=== PATIENT | female | born 1995 | race Caucasian/White ===

== ENCOUNTER → 2021-09-17 11:38 | Outpatient (BNVA) | payer BC, SELFPAY | PROVIDERS: Family Provider Family Medicine; PCP Family Medicine; Visit Provider Family Medicine | DX: Z34.00 Encounter for supervision of normal first pregnancy, unspecified trimester (principal) | CPT/HCPCS: 80307; 81000; 81025; 84443; 84702; 85027; 86592; 86762; 86850; 86900; 87086; 87340; 87491; 87591; 87624; 87806 ==

== ENCOUNTER 2021-09-18 15:51 | Outpatient (CLI) | payer BC, SELFPAY ==
--- NOTE | 2021-09-18 14:45 | US_ITS ---
WS: [id number] EARLY OBSTETRICAL ULTRASOUND (<14 WEEKS). HISTORY: Dates. COMPARISON: None available. Single intrauterine gestational sac is identified. Cardiac activity at 171 BPM. [place]-rump length yoav sures 2.8 cm which corresponds to a gestation of 9w4d. Normal-appearing yolk sac and amnion demonstra jens. No subchorionic hemorrhage. Trace free fluid in the cul-de-sac. Normal size RIGHT ovary. LEFT ovary is not identified. US/US OB <=14 wk fetus w transvag IMPRESSION: 1. Single intrauterine gestation of 9 weeks 4 days with an EDC of 04/19/2022. 2. Normal cardiac activity.
== END 2021-09-18 15:52 | disposition home or self-care (01) ==
LOC: RAD 15:52
PROVIDERS: Family Provider Family Medicine; PCP Family Medicine; Visit Provider Family Medicine
DX: Z36.87 Encounter for antenatal screening for uncertain dates (principal); Z3A.09 9 weeks gestation of pregnancy
CPT/HCPCS: 76801; 76817

== ENCOUNTER 2021-11-30 06:18 | Outpatient (CLI) | payer BC, MEDICAID, SELFPAY ==
--- NOTE | 2021-11-30 06:15 | US_ITS ---
WS: [id number] OBSTETRICAL ULTRASOUND COMPLETE HISTORY: Anatomy US COMPARISON: 09/18/2021 Single intrauterine gestation in breech presentation. Cervix is Closed and normal length. Cervical length is 4.2 cm. Normal amount of amniotic fluid surrounds the fetus. Placenta: Anterior, no previa or abruption. Placenta grade 0 Heart: 141 BPM. Four chambers are difficult to identify. Not identified due to maternal body habitus. Anatomy: spine and intracranial structures are identified but evaluation is limited due to mate rnal body habitus. kidneys, stomach and urinary bladder are unremarkable. Limited evaluation of the abdominal wall and cord insertion. Three-vessel cord noted. 4 extremities are present. profile: Unremarkable. Gender: Female. measurements: BPD = 4.8 cm = 20w4d HC = 19.4 cm = 21w5d AC = 15.9 cm = 21w0d FL = 3.1 cm = 19w5d EFW: 360 g. Biometry is internally concordant. AGA by ultrasound: 20w6d GLORIA by ultrasound: 04/13/2022 US/US OB >= 14 weeks fetus [id number] IMPRESSION: 1. Single intrauterine gestation of 20w6d with an GLORIA of 04/13/2022. Appropria te growth since the first trimester ultrasound. 2. Screening survey of anatomy is limited by maternal body habitus. Four -chamber heart and outflow tracts are limited. Limited evaluation of the intrac ranial structures and spine. The remaining anatomy is negative.
== END 2021-11-30 06:19 | disposition home or self-care (01) ==
PROVIDERS: PCP Family Medicine; Visit Provider Family Medicine
DX: Z36.89 Encounter for other specified antenatal screening (principal); Z3A.20 20 weeks gestation of pregnancy
CPT/HCPCS: 76805

== ENCOUNTER → 2022-01-04 08:19 | Outpatient (BNVA) | payer BC, MEDICAID, SELFPAY | PROVIDERS: PCP Family Medicine; Visit Provider Family Medicine | DX: Z34.00 Encounter for supervision of normal first pregnancy, unspecified trimester (principal) | CPT/HCPCS: 76816 ==

== ENCOUNTER → 2022-01-14 12:57 | Outpatient (BNVA) | payer BC, MEDICAID, SELFPAY | PROVIDERS: PCP Family Medicine; Visit Provider Family Medicine | DX: Z23 Encounter for immunization (principal); Z34.00 Encounter for supervision of normal first pregnancy, unspecified trimester | CPT/HCPCS: 82950 ==

== ENCOUNTER → 2022-01-21 12:00 | Day surgery (SDC) | payer BC, MEDICAID, SELFPAY ==
[2022-01-21 12:30] VITALS: BMI 49.2
[2022-01-21 12:31] VITALS: BP 157/95; PULSE 107; RESP 18; TEMP 35.9; O2SAT 98
[2022-01-21 13:39] VITALS: BP 157/95; PULSE 107; RESP 18; TEMP 35.9; O2SAT 98
== END ==
PROVIDERS: PCP Family Medicine; Visit Provider Family Medicine
DX: O26.899 Other specified pregnancy related conditions, unspecified trimester (principal); Z3A.00 Weeks of gestation of pregnancy not specified; Z67.91 Unspecified blood type, Rh negative
CPT/HCPCS: 36415; 86850; 86900; 90384; 96372

== ENCOUNTER → 2022-02-20 13:23 | Outpatient (BNVA) | payer BC, MEDICAID, SELFPAY | PROVIDERS: PCP Family Medicine; Visit Provider Family Medicine | DX: Z51.81 Encounter for therapeutic drug level monitoring (principal); Z34.00 Encounter for supervision of normal first pregnancy, unspecified trimester | CPT/HCPCS: 85025 ==

== ENCOUNTER → 2022-03-20 13:55 | Outpatient (BNVA) | payer BC, MEDICAID, SELFPAY | PROVIDERS: PCP Family Medicine; Visit Provider Family Medicine | DX: Z34.00 Encounter for supervision of normal first pregnancy, unspecified trimester (principal) | CPT/HCPCS: 87081 ==

== ENCOUNTER 2022-03-24 08:16 | Outpatient (CLI) | payer BC, MEDICAID, SELFPAY ==
[2022-03-24 08:39] VITALS: BP 121/69; PULSE 120
[2022-03-24 08:46] VITALS: BMI 50.7
[2022-03-24 08:54] VITALS: BP 100/56; PULSE 96
[2022-03-24 08:58] VITALS: TEMP 35.8
[2022-03-24 09:09] VITALS: BP 141/70; PULSE 93
[2022-03-24 09:14] VITALS: RESP 18
[2022-03-24 18:10] LABS: Nitrazine Paper, PH Negative
== END 2022-03-24 09:25 | disposition home or self-care (01) ==
LOC: OPOB 08:26 → OBGYN 08:28
PROVIDERS: PCP Family Medicine; Visit Provider Family Medicine
DX: O26.899 Other specified pregnancy related conditions, unspecified trimester (principal); Z3A.00 Weeks of gestation of pregnancy not specified; N89.8 Other specified noninflammatory disorders of vagina
CPT/HCPCS: 59025; 83986; 99211

== ENCOUNTER 2022-04-04 10:47 | Outpatient (CLI) | payer BC, MEDICAID, SELFPAY ==
--- NOTE | 2022-04-04 10:45 | US_ITS ---
WS: [id number] LIMITED OBSTETRICAL ULTRASOUND HISTORY: Measuring large for gestational age - TANIA/EFW COMPARISON: 2021, 11/30/2021, 01/04/2022 Presentation: Vertex. Cervix: Not visualized. Obscured by the head. Placenta: Anterior, no previa or abruption. Grade: 3 HEART: FHR of 138 BPM. measurements: BPD = 9.2 cm = 37w3d; 63rd percentile HC = 33.9 cm = 39w0d; 55th percentile AC = 34.9 cm = 38w5d; 87th percentile FL = 7.4 cm = 37w6d; 54th percentile TANIA: 14.4 cm EFW: 3491 g; 87th percentile AGA by ultrasound: 38w2d GLORIA by ultrasound: 04/16/2022 US/US OB limited [id number] IMPRESSION: 1. Single intrauterine gestation of 38 weeks 2 days with an EDC of 04/16/2022. Growth is appropriate compared to the first trimester ultrasound. 2. Estimated weight at the 87th percentile for age. 3. Abdominal circumference measuring at the 87th percentile for age. 4. Grade 3 placenta.
== END 2022-04-04 10:48 | disposition home or self-care (01) ==
LOC: RAD 10:49
PROVIDERS: PCP Family Medicine; Visit Provider Family Medicine
DX: Z36.88 Encounter for antenatal screening for fetal macrosomia (principal); Z3A.38 38 weeks gestation of pregnancy
CPT/HCPCS: 76815

== ENCOUNTER 2022-04-15 14:57 | Inpatient (IN) | payer BC, MEDICAID, SELFPAY ==
[2022-04-15] VITALS (30 sets, daily range): BP systolic 127–210; BP diastolic 65–125; PULSE 80–104; RESP 18; O2SAT 98–100; BMI 51.5
[2022-04-15 16:31] LABS: Basophils % 0.2 %; Eosinophils % 0.3 %; Hematocrit 36.6 % (37.0-47.0); Hemoglobin 12.4 g/dL (11.5-15.3); Lymphocytes # 2.5 10^3/uL (0.8-4.8); Lymphocytes % 20.7 %; Mean Corpuscular HGB Conc 33.9 g/dL (30.0-36.0); Mean Corpuscular Hemoglobin 31.6 pg (28.0-34.0); Mean Corpuscular Volume 93.1 fl (81-99); Mean Platelet Volume 11.2 fL (7.4-10.4); Monocytes # 0.8 10^3/uL (0.2-0.9); Monocytes % 6.3 %; Neutrophils # 8.61 10^3/uL (1.8-7.7); Nucleated Red Blood Cells % 0 %; Platelet Count 282 10^3/cmm (130-400); Red Blood Count 3.93 10^6/uL (4.1-5.3); Red Cell Distribution Width 13.5 % (12.1-15.1)
[2022-04-15] MEDS: oxytocin 30 UNIT/500 ML BAG IV (16:56)
[2022-04-15] MEDS: dextrose 5%-lactated ringers 1,000 ML 125 ML IV (16:57)
[2022-04-15] MEDS: ampicillin 2,000 MG in sodium chloride 0.9% (plus) 50 ML 100 MG IV (17:38)
--- NOTE | 2022-04-15 18:19 | P.HP_ITS ---
Providers/Chief Complaint Admitting Physician: Adalebrto Bauer MD Primary Care Provider: Adalberto Bauer MD Chief Complaint: Induction History of Present Illness Meka Sigala is a 27 year old @ 39.3 weeks by LMP consistent with 9 wk US. Preg c/b obesity, Rh negative, GBS positive, elevating BP. The patient presented to my office on the morning of 04/15/2022 and her blood pressure was found to be in the 150s systolic. This improved to the mid 140s systolic on recheck. The patient did not have any headache, nausea, flashes of light or abdominal pain. Her cervical exam was 3 cm dilation with 80% effacement. The patient was already scheduled for an elective induction of labor on 04/16/2022. For this reason, we discussed the options for proceeding with delivery today versus waiting until tomorrow and she confirmed that she would like to move forward with induction of labor today. The patient has been feeling well overall. She denies any leakage of fluid, vaginal bleeding, chest pain, shortness of breath, nausea, vomiting, diarrhea, constipation, dysuria, headaches. She has been having increased contractions at home. Upon presentation to labor and delivery she was noted to be 5 cm dilated. Medications/Allergies Home Medications Medication Instructions Recorded Confirmed Last Taken Type PNV no.151-iron 27 mg-folic 800 1 cap PO DAILY 09/19/21 04/15/22 01/21/22 History mcg-omega3 260 ea-lue-mvz-fish capsule ( Multi-DHA (with vitamin K)) Allergies Allergy/AdvReac Type Severity Reaction Status Date / Time cephalexin Allergy Intermediate ALGY-Rash Verified 01/21/22 12:30 PFSH Acute PFSH: Medical History Anxiety and depression Surgical History Hx of tonsillectomy Social History Smoking and tobacco status: never smoked Alcohol intake: former Former alcohol use details: None during - occasional outside of Female Reproductive History: : 1 Vitals/I&O/Wt Last Vital Signs Pulse 87 04/15/22 17:51 Resp 18 04/15/22 16:09 BP 210/125 04/15/22 17:51 O2 Del Method 04/15/22 16:09 04/15/22 04/15/22 04/15/22 06:59 14:59 22:59 Intake Total 240.567 / 240.567 Balance 240.567 / 240.567 Weight last 48 hrs Weight 329 lb Physical Exam Narrative: General: Alert and oriented x3 Eyes: Pupils equal round and reactive to light and accommodation Mouth: Mucous membranes moist, pharynx non-erythematous Cardiac: Regular rate and rhythm without murmurs Lungs: Clear to auscultation bilaterally without wheezes, crackles or rhonchi Abdomen: Soft, non-tender, fundus consistent with gestational age Extremities: Trace edema in the bilateral lower extremities Data 04/15/22 15:45 A&P Assessment and plan (1) Elevated blood-pressure reading without diagnosis of hypertension: (2) Rh negative status during : (3) Supervision of normal intrauterine in primigravida: We will plan to proceed with induction of labor using IV Pitocin. The patient is GBS positive and we will start her on ampicillin for GBS prophylaxis. She may have a laboring epidural when desired. Currently her blood pressures are in the 130s to 150s systolic. She is asymptomatic with this. Her protein creat inine ratio is 0.13. She is unlikely to have preeclampsia based on these findings. We will continue to watch her blood pressures and continue with induction of labor as above. All questions were answered. The patient and her are in agreement with the current plan of care. Attestations Medical Necessity Statement*: The patient will be here for greater than 2 midnights due to routine intrapartum and management of labor and delivery. Coding Level of Care Code Acute Code for Chg Fwd Diagnoses Elevated blood-pressure reading without diagnosis of hypertension R03.0 Rh negative status during O26.899; Z67.91 Supervision of normal intrauterine in primigravida Z34.00
[2022-04-15] MEDS: ampicillin 1,000 MG in sodium chloride 0.9% (plus) 50 ML 100 MG IV (21:14)
[2022-04-15] MEDS: labetalol 5 mg/mL SDV 20mL 20 MG IVP (22:00)
[2022-04-15] MEDS: lactated ringers 1,000 ML 999 ML IV (22:13)
[2022-04-15] MEDS: labetalol 5 mg/mL SDV 20mL 40 MG IVP (22:30)
--- NOTE | 2022-04-15 23:19 | ANES.PREANE2 ---
Pre-Anesthetic Assessment Height/Weight: Height 1.7 m Weight 149.232 kg Pulse Resp BP O2 Del Method 90 18 146/72 04/15/22 23:14 04/15/22 16:09 04/15/22 23:14 04/15/22 16:09 Preop Diagnosis: labor epidural Familial anesthetic complications: none Was Beta Latisha taken within 24 hours: N/A Was Clonidine taken within 24 hours: N/A Last Intake: 12:00 Social No alcohol and No tobacco Exam alert, oriented x 3, clear to auscultation bilaterally and regular rate & rhythm Airway Submandibular: within normal limits Cervical ROM: within normal limits Mallampati: Class II Dentition: full Pulmonary None reported CV/HEM Hypertension (with ) None reported Hepatic None reported GI None reported Metabolic Morbid Obesity [facility] None reported Neuropsych None reported Anesthetic Plan ASA status: 2 Anesthesia: Regional (specify below) (epidural) Medications/Allergies Home Medications Medication Instructions Recorded Confirmed Last Taken Type PNV no.151-iron 27 mg-folic 800 1 cap PO DAILY 09/19/21 04/15/22 01/21/22 History mcg-omega3 260 ff-ksn-ebm-fish capsule ( Multi-DHA (with vitamin K)) Allergies Allergy/AdvReac Type Severity Reaction Status Date / Time cephalexin Allergy Intermediate ALGY-Rash Verified 01/21/22 12:30 Current Medications Generic Name Dose Route Start Last Admin Trade Name Freq PRN Reason Stop Dose Admin Dextrose/Lactated Ringer's 1,000 mls @ 125 mls/hr 04/15/22 16:15 04/15/22 16:57 Dextrose 5%-Lactated Ringers IV 125 mls/hr .Q8H MAX Administration Oxytocin 30 unit in 500 mls @ 1 mls/hr 04/15/22 16:15 04/15/22 20:30 Pitocin IV 20 milliunit/min .Q24H MAX 20 mls/hr Titration Protocol 1 MILLIUNIT/MIN Ampicillin Sodium 1,000 mg/ 50 mls @ 100 mls/hr 04/15/22 21:15 04/15/22 21:14 Sodium Chloride IV 100 mls/hr Q4H MAX Administration Protocol Labetalol HCl 20 mg 04/15/22 21:48 04/15/22 22:00 Labetalol 5 Mg/Ml Sdv 20ml IVP 20 mg PRN PRN Administration HYPERTENSION Protocol Labetalol HCl 40 mg 04/15/22 21:48 04/15/22 22:30 Labetalol 5 Mg/Ml Sdv 20ml IVP 40 mg PRN PRN Administration HYPERTENSION Protocol [facility] [place] Anesthesia Medical History Anxiety and depression Surgical History Hx of tonsillectomy Social History Smoking and tobacco status: never smoked Alcohol intake: former Former alcohol use details: None during - occasional outside of Female Reproductive History : 1 Data Anesthesia 04/15/22 15:45 Short CBC 04/15/22 Range/Units 15:45 WBC 12.0 H (4.0-10.0) 10^3/uL Hgb 12.4 (11.5-15.3) g/dL Hct 36.6 L (37.0-47.0) % MCV 93.1 (81-99) fl Plt Count 282 (130-400) 10^3/cmm Neut % (Auto) 72.0 % Neut # (Auto) 8.61 H (1.8-7.7) 10^3/uL Cardiac Studies: No Data to Display
[2022-04-16] VITALS (39 sets, daily range): BP systolic 120–189; BP diastolic 53–114; PULSE 83–133; RESP 16; TEMP 36.6–37.3; O2SAT 96–97
--- NOTE | 2022-04-16 00:02 | ANES.PROC ---
Anesthesia Procedures Procedure/Date: 04/16/22 Epidural: Time Out Performed: Yes Consents Signed: Procedure Consent and NPO Consent Consent: requested by attending/covering physician, from patient, risks and benefits reviewed and patient agrees to proceed Lumbar Level: L3-L4 Epidural position: sitting Epidural procedure: sterile prep of area (betadine), 1% lidocaine to numb the area (3ml), 18 g needle, negative for paresthesia passed, neg for paresthesia, test dose given, 1.5% xylocaine 1:200k epi (3ml/2ml), 0.2% Ropivacaine bolus ml (5ml), placed PCEA, no systemic response, sterile dressing applied, L.U.D. no apparent complications and 0.2% Ropiavacaine @ mls/hr (13ml/hr)
[2022-04-16] MEDS: labetalol 5 mg/mL SDV 20mL 40 MG IVP (02:37)
[2022-04-16] MEDS: ampicillin 1,000 MG in sodium chloride 0.9% (plus) 50 ML 100 MG IV (03:03)
[2022-04-16] MEDS: labetalol 5 mg/mL SDV 20mL 20 MG IVP (06:54)
--- NOTE | 2022-04-16 07:56 | P.PCNOB_ITS ---
Delivery Note: Date of delivery: April 16, 2022 Pre-delivery diagnoses: 1. Intrauterine at 39.4 weeks gestation 2. Maternal obesity 3. Rh- 4. GBS positive 5. Gestational hypertension 6. Meconium stained fluid Post-delivery diagnoses: 1. Intrauterine status post spontaneous vaginal delivery at 39.4 weeks gestation 2. Maternal obesity 3. Rh- 4. GBS positive 5. Gestational hypertension1. Intrauterine at 39.4 weeks gestation 2. Maternal obesity 3. Rh- 4. GBS positive 5. Gestational hypertension 6. Meconium stained fluid 7. Delivery of healthy female weighing 7 pounds 11 ounces with Apgars of 7 and 9 Procedure: Spontaneous vaginal delivery Delivering Physician: Adalberto Bauer MD Estimated blood loss (mL): 200 Findings: 1. Delivery of healthy female weighing 7 pounds 11 ounces with Apgars of 7 and 9 2. Intact placenta with central umbilical cord insertion site. Pre-Delivery Course: Meka Sigala is a 27 year old G1 NOW P1 status post spontaneous vaginal delivery@ 39.4 weeks by LMP consistent with 9 wk US. Preg c/b obesity, Rh negative, GBS positive, intrapartum gestational hypertension The patient presented to my office on the morning of 04/15/2022 and her blood pressure was found to be in the 150s systolic.? This improved to the mid 140s systolic on recheck.? The patient did not have any headache, nausea, flashes of light or abdominal pain.? Her cervical exam was 3 cm dilation with 80% effacement.? The patient was already scheduled for an elective induction of labor on 04/16/2022.? For this reason, we discussed the options for proceeding with delivery today versus waiting until tomorrow and she confirmed that she would like to move forward with induction of labor today. Upon presentation to labor and delivery she was noted to be 5 cm dilated. The patient was started on IV Pitocin for induction of labor in the early afternoon of 04/15/2022. The patient had regular contractions however did not make significant change. By 2131 the head was well applied, so AROM was performed by myself. Meconium stained fluid was noted. The patient then began to make slow but gradual progress. She was complete by 4:15 AM on 04/16/2022. The patient did have some severe blood pressures and these were treated with labetalol IV. She had no other symptoms including headache, nausea, flashes of lights, chest pains. Delivery: The patient began pushing at 5:04 AM on 04/08/2022. The patient pushed well and the delivered in the OA position at 7:12 AM on 04/16/2022. The left shoulder was the anterior shoulder and it delivered with ease. A nuchal cord was present and the infant was delivered through this. The infant's mouth and nose were bulb suctioned by myself and she was crying and vigorous immediately after delivery. She was placed on the mother's chest where the nurses were waiting to care for her. The cord was clamped by myself after approximately 1 minute and cut by the 's father. Cord blood was obtained and the cord was then drained of blood. Traction was placed on the umbilical cord and the placenta delivered without complication at 7:23 AM on 04/16/2022. The placenta was noted to be intact with a central umbilical cord insertion site. Next the uterus was massaged and was noted to be firm and midline. Her bleeding decreased gradually. The cervix was inspected and no lacerations were noted. The vaginal wall was inspected and a first-degree right vaginal wall laceration was noted. This was not bleeding and did not need suturing. Post-Delivery Status: Currently the patient is doing very well. The is needing extra respiratory support at this time. She initially needed CPAP at approximately 7 to 10 minutes of life and is currently on oxygen via nasal cannula. She is gradually showing signs of improvement. History History History 1 Term 1 0 Miscarriages/Ectopic 0 Living Children 1 Past Pregnancies Del. Date GA/Weeks Outcome Route Wt Inf Gender Labor Lgth Comp. Anesth esia Location 04/16/22 39 live - full term Vaginal 7 lb 11 oz Female 16 regional [facility] Delivery Date: 04/16/22 Last Updated by: Adalberto Bauer MD Meconium stained fluid, severe hypertension during labor treated with labetalol. A&P Assessment and plan (1) Spontaneous vaginal delivery: (2) Gestational hypertension: Coding Level of Care Code Acute Code for Chg Fwd Diagnoses Spontaneous vaginal delivery O80 Gestational hypertension O13.9
[2022-04-16] MEDS: prenatal vitamin Capsule 1 CAP PO (09:51)
[2022-04-16] MEDS: ibuprofen 800 mg tablet PO ×3 (09:51→20:48)
[2022-04-16] MEDS: docusate sodium 100 mg Capsule PO ×2 (09:52→18:27)
--- NOTE | 2022-04-16 12:45 | ANE.PACU2 ---
Inpatient post-anesthesia follow up: Airway intact: Yes Vital signs: Temperature 99.1 F Pulse Rate 91 Respiratory Rate 18 Blood Pressure 163/73 Pulse Oximetry 100 Oxygen Delivery Me thod Room Air Oxygen Flow Rate Fraction of Inspir ed Oxygen Hydration adequate: Yes Nausea and vomiting: No Pain level: 2 Mental status: Baseline
[2022-04-16 21:16] LABS: Hematocrit 29.5 % (37.0-47.0); Hemoglobin 9.9 g/dL (11.5-15.3); Mean Corpuscular HGB Conc 33.6 g/dL (30.0-36.0); Mean Corpuscular Hemoglobin 31.3 pg (28.0-34.0); Mean Corpuscular Volume 93.4 fl (81-99); Mean Platelet Volume 10.4 fL (7.4-10.4); Platelet Count 222 10^3/cmm (130-400); Red Blood Count 3.16 10^6/uL (4.1-5.3); Red Cell Distribution Width 13.9 % (12.1-15.1); White Blood Count 14.9 10^3/uL (4.0-10.0)
--- NOTE | 2022-04-17 08:16 | PM.PN ---
Subjective Subjective: The patient is doing well overall. Her bleeding is decreasing well. Her pain is well controlled. She is ambulating, voiding, passing gas and tolerating food by mouth. Vitals/I&O/Wt Last Vital Signs Temp 98.0 F 04/16/22 22:40 Pulse 86 04/16/22 22:40 Resp 16 04/16/22 22:40 BP 146/85 04/16/22 22:40 Pulse Ox 97 04/16/22 22:40 O2 Del Method 04/16/22 22:40 Weight last 48 hrs Weight 329 lb Physical Exam Narrative: General: Alert and oriented x3 Cardiac: Regular rate and rhythm without murmurs Lungs: Clear to auscultation bilaterally without wheezes, crackles or rhonchi Abdomen: Soft, mild tenderness over uterus. The uterus is firm and 2 cm below the umbilicus. Extremities: +2 pitting edema in the bilateral lower extremities Urinary Catheter Management: Noel Latex: Cath Placed During This Visit: yes Urinary Catheter Date of Insertion: 04/16/22 Urinary Catheter Time of Insertion: 00:40 Data 04/16/22 21:10 A&P Assessment and plan (1) Gestational hypertension: The patient's blood pressures are gradually decreasing. We will continue to watch them and if moving up, we may need to start labetalol . (2) Spontaneous vaginal delivery: The patient is doing well overall. We will see how she does throughout the day in terms of her blood pressures and plan for discharge home either this afternoon or tomorrow depending on her course. Attestations Medical Necessity Statement*: The patient will be here for greater than 2 midnights due to routine intrapartum and management of labor and delivery. Coding Level of Care Code Acute Code for Chg Fwd Diagnoses Gestational hypertension O13.9 Spontaneous vaginal delivery O80
[2022-04-17] MEDS: ibuprofen 800 mg tablet PO ×3 (10:44→21:34)
[2022-04-17] MEDS: prenatal vitamin Capsule 1 CAP PO (10:44)
[2022-04-17] MEDS: docusate sodium 100 mg Capsule PO ×2 (10:44→21:34)
[2022-04-17 10:49] VITALS: BP 146/98; PULSE 90; RESP 17
[2022-04-17 16:50] VITALS: BP 139/87; PULSE 88; RESP 17; TEMP 36.7
[2022-04-17 22:15] VITALS: BP 132/90; PULSE 72; RESP 17; TEMP 36.7; O2SAT 98
[2022-04-18 04:10] VITALS: BP 142/86; PULSE 74; RESP 18; TEMP 36.8; O2SAT 97
[2022-04-18 07:15] VITALS: BP 139/89; PULSE 87; RESP 18; TEMP 36.8
--- NOTE | 2022-04-18 07:47 | PC.NURSE ---
RECEIVED REPORT FROM ISAURO LLOYD RN AT BEDSIDE.
--- NOTE | 2022-04-18 08:51 | P.DS_ITS ---
Discharge Providers Date of Admission: 04/15/22 14:57 Date of Discharge: April 18, 2022 Attending Provider at Admission: Adalberto Bauer MD Attending Provider at Discharge: Adalberto Bauer MD Primary Care Provider: Adalberto Bauer MD Diagnoses at Discharge Discharge Diagnosis (1) Gestational hypertension: Status: Acute (2) Spontaneous vaginal delivery: Status: Resolved Other Information Additional DC diagnoses/information: 1.? Intrauterine status post spontaneous vaginal delivery at 39.4 weeks gestation 2.? Maternal obesity 3.? Rh- 4.? GBS positive 5.? Gestational hypertension 6.? Meconium stained fluid 7.? Delivery of healthy infant female weighing 7 pounds 11 ounces with Apgars of 7 and 9? Reason for Visit Reason for Visit: Induction Brief History: Meka Sigala is a 27 year old G1 NOW P1 status post spontaneous vaginal delivery@ 39.4 weeks by LMP consistent with 9 wk US. Preg c/b obesity, Rh negative, GBS positive, intrapartum gestational hypertension The patient presented to my office on the morning of 04/15/2022 and her blood pressure was found to be in the 150s systolic.? This improved to the mid 140s systolic on recheck.? The patient did not have any headache, nausea, flashes of light or abdominal pain.? Her cervical exam was 3 cm dilation with 80% effacement.? The patient was already scheduled for an elective induction of labor on 04/16/2022.? For this reason, we discussed the options for proceeding with delivery today versus waiting until tomorrow and she confirmed that she would like to move forward with induction of labor today. Upon presentation to labor and delivery she was noted to be 5 cm dilated. Procedure: Sponta neous vaginal deli very? Delivering P hysician: Adalberto santiago MD? Estimat ed blood loss (mL) : 200? Findings: 1.? Delivery of he althy femal e weighing 7 pound s 11 ounces with A pgars of 7 and 9 2.? Intact placent a with central umb ilical cord insert ion site. Pre-Delivery Cours e:?? ? Delivery:?? Post-Delivery Stat us:?? Hospital Course Hospital Course The patient was started on IV Pitocin for induction of labor in the early afternoon of 04/15/2022.? The patient had regular contractions however did not make significant change.? By 2132 the head was well applied, so AROM was performed by myself.? Meconium stained fluid was noted.? The patient then began to make slow but gradual progress.? She was complete by 4:15 AM on 04/16/2022.? The patient did have some severe blood pressures and these were treated with labetalol IV.? She had no other symptoms including headache, nausea, flashes of lights, chest pains. The patient began pushing at 5:04 AM on 04/08/2022.? The patient pushed well and the delivered in the OA position at 7:12 AM on 04/16/2022.? The left shoulder was the anterior shoulder and it delivered with ease.? A nuchal cord was present and the infant was delivered through this.? The 's mouth and nose were bulb suctioned by myself and she was crying and vigorous immediately after delivery.? She was placed on the mother's chest where the nurses were waiting to care for her.? The cord was clamped by myself after approximately 1 minute and cut by the 's father.? Cord blood was obtained and the cord was then drained of blood.? Traction was placed on the umbilical cord and the placenta delivered without complication at 7:23 AM on 04/16/2022.? The placenta was noted to be intact with a central umbilical cord insertion site.? Next the uterus was massaged and was noted to be firm and midline.? Her bleeding decreased gradually.? The cervix was inspected and no lacerations were noted.? The vaginal wall was inspected and a first-degree right vaginal wall laceration was noted.? This was not bleeding and did not need suturing. the patient's blood pressures were in the 130s 140s systolic. She denies any chest pains, shortness of breath, nausea, vomiting. Her bleeding is decreasing well. Her pain is well controlled. She is ambulating, voiding, passing gas and tolerating food by mouth. She is to check her blood pressures at home and keep her overall activity levels decreased. If she is having increased blood pressure she is to call and let me know. All questions answered. The patient and her are in agreement with current plan of care. Physical Exam Narrative: General: Alert and oriented x3 Cardiac: Regular rate and rhythm without murmurs Lungs: Clear to auscultation bilaterally without wheezes, crackles or rhonchi Abdomen: Soft, mild tenderness over uterus. The uterus is firm and 2 cm below the umbilicus. Extremities: +1 pitting edema in the bilateral lower extremities Urinary Catheter Management: Noel Latex: Cath Placed During This Visit: yes Urinary Catheter Date of Insertion: 04/16/22 Urinary Catheter Time of Insertion: 00:40 Discharge Data Studies Completed and Pending Laboratory Results WBC 14.9 10^3/uL (4.0-10.0) H 04/16/22 21:10 RBC 3.16 10^6/uL (4.1-5.3) L 04/16/22 21:10 Hgb 9.9 g/dL (11.5-15.3) L 04/16/22 21:10 Hct 29.5 % (37.0-47.0) L 04/16/22 21:10 MCV 93.4 fl (81-99) 04/16/22 21:10 MCH 31.3 pg (28.0-34.0) 04/16/22 21:10 MCHC 33.6 g/dL (30.0-36.0) 04/16/22 21:10 RDW 13.9 % (12.1-15.1) 04/16/22 21:10 Plt Count 222 10^3/cmm (130-400) 04/16/22 21:10 MPV 10.4 fL (7.4-10.4) 04/16/22 21:10 Neut % (Auto) 72.0 % 04/15/22 15:45 Lymph % (Auto) 20.7 % 04/15/22 15:45 [place] % (Auto) 6.3 % 04/15/22 15:45 Eos % (Auto) 0.3 % 04/15/22 15:45 Baso % (Auto) 0.2 % 04/15/22 15:45 Neut # (Auto) 8.61 10^3/uL (1.8-7.7) H 04/15/22 15:45 Lymph # (Auto) 2.5 10^3/uL (0.8-4.8) 04/15/22 15:45 [place] # (Auto) 0.8 10^3/uL (0.2-0.9) 04/15/22 15:45 Eos # (Auto) 0.0 10^3/uL (0.0-0.8) 04/15/22 15:45 Baso # (Auto) 0.0 10^3/uL (0.0-0.1) 04/15/22 15:45 Nucleated RBC % (auto) 0 % 04/15/22 15:45 Nucleated RBCs # 0.0 /100WBC 04/15/22 15:45 Vitals Last Vital Signs Temp 98.3 F 04/18/22 07:15 Pulse 87 04/18/22 07:15 Resp 18 04/18/22 07:15 BP 139/89 04/18/22 07:15 Pulse Ox 97 04/18/22 04:10 O2 Del Method 04/18/22 04:10 Discharge Plan Discharge Patient Disposition: Home Condition: Good Prescriptions: New ferrous sulfate 325 mg (65 mg iron) tablet 325 mg PO BID 14 Days Qty: 30 0RF Continued Multi-DHA(with vit K) 27 mg iron-800 mcg-260 mg capsule 1 cap PO DAILY No Action Lasix 40 mg tablet 40 mg PO DAILY PRN (Reason: edema) potassium chloride 10 mEq capsule, extended release 10 meq PO DAILY PRN Rx Instructions: When taking lasix ibuprofen 800 mg tablet 800 mg PO TID PRN (Reason: Pain) labetalol 100 mg tablet 100 mg PO BID Qty: 90 0RF Rx Instructions: take 1 tablet BID check your BP daily - increase by 1/2 tab BID up to max of 200 BID for BP > 150/100 Discharge Orders: Discharge Order (Routine); Ordered 04/18/22 Ordered By: Adalberto Bauer Discharge Diet: Regular Discharge Activity: Increase activity as tolerated Patient Instructions: Depression (GEN), Perineal Care (GEN), Bleeding (GEN), Preeclampsia and Eclampsia After Delivery (GEN), COVID-19 and (GEN), Hemorrhage (GEN), OB Discharge Report, OB Food/Drug Interaction Guide, Opioid Safety, OB Home Care, OB [facility] - [facility], Abnormal Bleeding, Depression Activity Restrictions/Additional Instructions: Nothing per vagina for 6 weeks. Showers are preferred over baths for the first 6 weeks. Discharge Attestations Time Spent in Discharge Care*: greater than 30 min Quality Metrics Clinical Quality Measures [ No reported AMI, CVA or VTE this stay] Coding Level of Care Code Acute Code for Chg Fwd Diagnoses Gestational hypertension O13.9 Spontaneous vaginal delivery O80
[2022-04-18] MEDS: prenatal vitamin Capsule 1 CAP PO (09:26)
[2022-04-18] MEDS: ibuprofen 800 mg tablet PO (09:26)
[2022-04-18] MEDS: docusate sodium 100 mg Capsule PO (09:26)
[2022-04-18 10:00] VITALS: BP 144/85; PULSE 83; RESP 18; TEMP 36.9
[2022-04-18 10:26] VITALS: BP 144/85; PULSE 83; RESP 18; TEMP 36.9
== END 2022-04-18 10:50 | disposition home or self-care (01) | DRG 807 ==
LOC: OPOB 14:57 → OBGYN 14:59 → OPOB 04-16 06:52 → OBGYN 04-16 06:52
PROVIDERS: Admitting Provider Family Medicine; PCP Family Medicine; Visit Provider Family Medicine
DX: O13.4 Gestational [pregnancy-induced] hypertension without significant proteinuria, complicating childbirth (principal); Z37.0 Single live birth; O99.214 Obesity complicating childbirth; E66.9 Obesity, unspecified; O99.824 Streptococcus B carrier state complicating childbirth; O77.0 Labor and delivery complicated by meconium in amniotic fluid; O69.81X0 Labor and delivery complicated by cord around neck, without compression, not applicable or unspecified; O26.899 Other specified pregnancy related conditions, unspecified trimester; Z67.91 Unspecified blood type, Rh negative; Z3A.39 39 weeks gestation of pregnancy
CPT/HCPCS: 36415; 51702; 59025; 82570; 84156; 85025; 85027; 96374; 96376; 98960; J0290; J2590; J2795; J3490; J7120; J7121

== ENCOUNTER 2022-04-20 10:57 | Emergency (ER) | payer BC, MEDICAID, SELFPAY ==
[2022-04-20] VITALS (11 sets, daily range): BP systolic 143–179; BP diastolic 78–112; PULSE 81–117; RESP 16–23; TEMP 37.2; O2SAT 95–98
--- NOTE | 2022-04-20 11:19 | ECG_ITS ---
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 Measurements Intervals [place] Rate: 78 P: 77 ND: 126 QRS: 57 QRSD: 75 T: 41 QT: 344 QTc: 392 Interpretive Statements SINUS RHYTHM LOW QRS VOLTAGE IN PRECORDIAL LEADS [QRS DEFLECTION < 1.0 mV IN CHEST LEADS] No previous ECG available for comparison Electronically Signed On 04-20-2022 16:07:46 NATURAL SCIENCE CURATOR by Zia Cordova M.D. [id number]
--- NOTE | 2022-04-20 11:19 | XRR_ITS ---
PROCEDURE INFORMATION: Exam: XR Chest Exam date and time: 04/20/2022 11:42 AM Age: 27 years old Clinical indication: Other: Elevated BP; Additional info: Short of breath TECHNIQUE: Imaging protocol: Radiologic exam of the chest. Views: 1 view. COMPARISON: No relevant prior studies available. FINDINGS: Lungs: Unremarkable. No consolidation. Pleural spaces: Unremarkable. No pleural effusion. No pneumothorax. Heart/Mediastinum: Unremarkable. No cardiomegaly. Bones/joints: Unremarkable. XR/XR chest 1V portable [id number] IMPRESSION: No acute findings.
--- NOTE | 2022-04-20 11:19 | CTR_ITS ---
PROCEDURE INFORMATION: Exam: CTA Chest With Contrast Exam date and time: 04/20/2022 12:07 PM Age: 27 years old Clinical indication: Shortness of breath; Additional info: Post shortness of breath TECHNIQUE: Imaging protocol: Computed tomographic angiography of the chest with contrast. 3D rendering (Not supervised by radiologist): MIP and/or 3D reconstructed images were created by the technologist. Radiation optimization: All CT scans at this facility use at least one of these dose optimization techniques: automated exposure control; mA and/or kV adjustment per patient size (includes targeted exams where dose is matched to clinical indication); or iterative reconstruction. Contrast material: OMNI 350; Contrast volume: 100 ml; Contrast route: INTRAVENOUS (IV); REPORTING DATA: Count of CT and Cardiac NM exams in prior 12 months: This patient has received 0 known CTs and 0 known cardiac nuclear medicine studies in the 12 months prior to the current study. COMPARISON: CR (CHEST, ) 04/20/2022 11:42 AM RADIATION DOSE METRICS: Total DLP (mGy-cm): 495.6 FINDINGS: Pulmonary arteries: Normal. No pulmonary emboli. Aorta: Unremarkable. No aortic aneurysm. No aortic dissection. Lungs: Multifocal scattered bilateral pulmonary ground-glass opacities prominent posteriorly. Pleural spaces: Small bilateral pleural effusions. Heart: Heart is mildly enlarged. Mediastinal space: There is some soft tissue density in the anterior mediastinal fat measuring 4.0 x 3.0 cm in the transverse/AP dimensions. Lymph nodes: Unremarkable. No enlarged lymph nodes. Bones/joints: Unremarkable. No acute fracture. Soft tissues: Unremarkable. CT/CT angio chest PE protcl [id number] IMPRESSION: 1. Mild cardiomegaly with small bilateral pleural effusions raises concern for congestive heart failure. Please correlate clinically. 2. Multifocal scattered pulmonary ground-glass opacities are nonspecific however likely represent pulmonary edema in this patient. Pneumonia cannot be excluded. 3. Soft tissue density in the anterior mediastinal fat consistent with residual thymic tissue or thymic hyperplasia.
--- NOTE | 2022-04-20 11:31 | W.ED.SOB ---
HPI - SOB/Dyspnea General: Chief Complaint: Shortness of Breath/Dyspnea Stated Complaint: sob, high bp, 4 days post pardum Time Seen by Provider: 04/20/22 11:07 Source: patient and family History of Present Illness: HPI Narrative: Patient is a 27-year-old female who is 4 days from a vaginal delivery, 1 para 1 who presents with shortness of breath. Patient states starting last evening, she started having shortness of breath with exertion. She states she feels like she has a full sensation in her lower chest and just cannot get a deep breath. When she walks she becomes very short of breath and has to stop and rest. She denies cough or fever. She has had leg swelling but denies leg pain. No prior history of DVT or pulmonary embolism. She states she had no problems during her . She had some hypertension towards the end of her delivery process. Today upon arrival she is hypertensive which is new for her. She denies cough or fever. She is a non-smoker. She is breast-feeding. Associated symptoms: Reports chest pain; Deny abdominal pain, extremity pain, fever(s), lightheadedness, nausea, orthopnea, palpitations, syncope or vomiting Review of Systems Const: Denies: fever(s), chills or body aches ENMT: Denies: throat pain Card: Reports: chest pain, edema, swelling of feet/ankles and dyspnea on exertion; Denies: palpitations, irregular heart rhythm, lightheadedness, syncope, orthopnea or leg pain with exertion Resp: Reports: dyspnea and wheezing; Denies: productive cough, non-productive cough or pain on inspiration GI: Denies: abdominal pain, nausea or vomiting Musc: Reports: extremity swelling; Denies: extremity pain Skin/Breast: Denies: rash Neuro: Denies: headache(s) or difficulty walking PFSH ED PFSH: Medical History Anxiety and depression Surgical History Hx of tonsillectomy Social History Smoking and tobacco status: never smoked Alcohol intake: former Former alcohol use details: None during - occasional outside of Physical Exam Const: COMMON NORMALS: no acute distress and well nourished; negative for average body habitus Eye: COMMON NORMALS: conjunctivae normal CONJUNCTIVA: Yes conjunctivae normal Neck/C-Spine: COMMON NORMALS: supple Resp: COMMON NORMALS: normal respiratory effort, No use of accessory muscles and clear to auscultation bilaterally AUSCULTATION: clear to auscultation bilaterally Cardio: COMMON NORMALS: regular rate and regular rhythm RATE: regular rate RHYTHM: regular rhythm GI: COMMON NORMALS: Normal to inspection, nondistended, normoactive bowel sounds present, Soft to palpation and non-tender PALPATION: Yes Soft to palpation Extremity: COMMON NORMALS: no calf tenderness; negative for no pedal edema (2+ edema bilaterally) Skin: COMMON NORMALS: no rashes or lesions noted and no jaundice GENERAL SKIN EXAM: no rashes or lesions noted Course ED course: Patient's been evaluated in the emergency department. She had an IV placed and labs obtained. She has been given 40 mg of Lasix IV. She had a chest x-ray performed which per my interpretation shows cardiomegaly and vascular congestion. Laboratory studies show very mild leukocytosis with a white blood cell count of 12.3. Her hemoglobin is 10.8, hematocrit 33.1 with most recent hemoglobin of 9.9 post delivery. Her platelet count is normal at 275. She does have very minimal elevation of her LFTs with an AST of 41, ALT of 66, alkaline phosphatase of 127. Troponin is 17, BNP 625. She is negative for COVID. CT arteriogram of the chest has been obtained to rule out pulmonary embolism. CT shows no PE but does show changes consistent with congestive heart failure. Given the patient's slightly elevated troponin, will wait on the 2-hour troponin. Patient's 2-hour troponin is 15.40 with a delta of -1.6. Patient remains persistently hypertensive blood pressure 179/93. Will give hydralazine 10 mg IV. Patient's been given Lasix 40 mg IV with good diuresis. She states her breathing feels improved Reevaluation(s): Reevaluation #1: After Lasix, the patient's breathing is improved. Time: 14:38 Reevaluation #2: Patient's blood pressures persistently elevated and she remains slightly tachycardic after 10 mg of hydralazine. We will give 20 mg of labetalol. Goal being to lower the patient's blood pressure to less than 150/100. Time: 15:30 Reevaluation #3: Patient's blood pressure and heart rate are much improved after the IV labetalol. Patient stable for discharge home. Consultations: Consultation #1: Discussed with Dr. Bauer. We will order the patient an outpatient echocardiogram. We will plan for discharge home on labetalol 100 mg twice daily with titration instructions for persistently elevated blood pressure readings. Suspect this is a cardiomyopathy with associated hypertension. He will see the patient in follow-up on Friday. Time: 15:31 Vital Signs: Vital signs: Vital Signs Temperature 98.9 F 04/20/22 11:09 Pulse Rate 103 H 04/20/22 16:00 Respiratory Rate 17 04/20/22 16:00 Blood Pressure 146/104 04/20/22 16:00 Pulse Oximetry 97 04/20/22 16:00 Oxygen Delivery Me thod 04/20/22 11:09 MDM - SOB/Dyspnea Medical Decision Making 27-year-old female who is 4 days , status post vaginal delivery who presents with shortness of breath with exertion and some chest discomfort. She does have 2+ peripheral edema. No calf tenderness. Certainly the period, pulmonary embolism is of high concern. Also of note her blood pressure is elevated so eclampsia or HELLP syndrome is a possibility. Other etiologies include congestive heart failure, pneumonia, COVID, anxiety, asthma exacerbation, URI Medical Records I reviewed the patient's medical records. Lab Data I reviewed the patient's lab results. Patient does have minimal elevation of her troponins but they are stable within a negative delta. BNP is elevated at 635 consistent with congestive heart failure. She also has slight elevation of her LFTs, most likely passive congestion related. Her platelet count is normal and she has no protein in her urine and a stable H&H I do not feel that she has HELLP syndrome. 04/20/22 11:20 04/20/22 11:20 Labs/Radiology: Radiology Impressions Chest CTA 04/20/22 11:19 IMPRESSION: 1. Mild cardiomegaly with small bilateral pleural effusions raises concern for congestive heart failure. Please correlate clinically. 2. Multifocal scattered pulmonary ground-glass opacities are nonspecific however likely represent pulmonary edema in this patient. Pneumonia cannot be excluded. 3. Soft tissue density in the anterior mediastinal fat consistent with residual thymic tissue or thymic hyperplasia. Chest X-Ray 04/20/22 11:19 IMPRESSION: No acute findings. Laboratory Results WBC 12.3 10^3/uL (4.0-10.0) H 04/20/22 11:20 RBC 3.48 10^6/uL (4.1-5.3) L 04/20/22 11:20 Hgb 10.8 g/dL (11.5-15.3) L 04/20/22 11:20 Hct 33.1 % (37.0-47.0) L 04/20/22 11:20 MCV 95.1 fl (81-99) 04/20/22 11:20 MCH 31.0 pg (28.0-34.0) 04/20/22 11:20 MCHC 32.6 g/dL (30.0-36.0) 04/20/22 11:20 RDW 14.3 % (12.1-15.1) 04/20/22 11:20 Plt Count 275 10^3/cmm (130-400) 04/20/22 11:20 MPV 10.3 fL (7.4-10.4) 04/20/22 11:20 Neut % (Auto) 72.0 % 04/20/22 11:20 Lymph % (Auto) 19.3 % 04/20/22 11:20 [place] % (Auto) 5.7 % 04/20/22 11:20 Eos % (Auto) 1.5 % 04/20/22 11:20 Baso % (Auto) 0.2 % 04/20/22 11:20 Neut # (Auto) 8.82 10^3/uL (1.8-7.7) H 04/20/22 11:20 Lymph # (Auto) 2.4 10^3/uL (0.8-4.8) 04/20/22 11:20 [place] # (Auto) 0.7 10^3/uL (0.2-0.9) 04/20/22 11:20 Eos # (Auto) 0.2 10^3/uL (0.0-0.8) 04/20/22 11:20 Baso # (Auto) 0.0 10^3/uL (0.0-0.1) 04/20/22 11:20 Nucleated RBC % (auto) 0 % 04/20/22 11:20 Nucleated RBCs # 0.0 /100WBC 04/20/22 11:20 Sodium 137 mmol/L (136-145) 04/20/22 11:20 Potassium 4.1 mmol/L (3.5-5.1) 04/20/22 11:20 Chloride 103 mmol/L (98-107) 04/20/22 11:20 Carbon Dioxide 23 mmol/L (22-29) 04/20/22 11:20 Anion Gap 15.1 (5-19) 04/20/22 11:20 BUN 8 mg/dL (6-20) 04/20/22 11:20 Creatinine 0.5 mg/dL (0.5-0.9) 04/20/22 11:20 GFR Calculation 146.9 mL/min (90-130) H 04/20/22 11:20 Glucose 75 mg/dL (65-115) 04/20/22 11:20 Calculated Osmolality 281 mOsm/kg (285-295) L 04/20/22 11:20 Calcium 8.7 mg/dL (8.5-10.5) 04/20/22 11:20 Magnesium 1.8 mg/dL (1.7-2.3) 04/20/22 11:20 Total Bilirubin 0.2 mg/dL (0.15-1.2) 04/20/22 11:20 AST 41 U/L (0-32) H 04/20/22 11:20 ALT 66 U/L (0-33) H 04/20/22 11:20 Alkaline Phosphatase 127 U/L (35-105) H 04/20/22 11:20 Troponin T Baseline 17 ng/L (0-10) H 04/20/22 11:20 Troponin T 120 Minute 15.40 ng/L (0-10) H 04/20/22 13:30 Delta Troponin T -1.60 ABS# (0-10) L 04/20/22 13:30 NT-Pro-B Natriuret Pep 635 pg/mL (0-125) H 04/20/22 11:20 Total Protein 5.5 g/dL (6.6-8.7) L 04/20/22 11:20 Albumin 3.1 g/dL (3.5-5.2) L 04/20/22 11:20 Globulin 2.4 g/dL (1.3-4.6) 04/20/22 11:20 Urine Color Yellow (Yellow) 04/20/22 13:01 Urine Appearance Clear (CLEAR) 04/20/22 13:01 Urine pH 8 (5-7) H 04/20/22 13:01 Ur Specific [place] 1.010 (1.005-1.030) 04/20/22 13:01 Urine Protein Neg (Negative) 04/20/22 13:01 Urine Glucose (UA) Norm (Normal) 04/20/22 13:01 Urine Ketones Negative (Negative) 04/20/22 13:01 Urine Blood 3+ (Negative) H 04/20/22 13:01 Urine Nitrate Negative (Negative) 04/20/22 13:01 Urine Bilirubin Neg (Negative) 04/20/22 13:01 Prot Sulfosalicylic Acd Negative (Negative) 04/20/22 13:01 Urine Urobilinogen Norm mg/dL (Negative) 04/20/22 13:01 Ur Leukocyte Esterase Trace (Negative) H 04/20/22 13:01 Urine RBC 10-15 /hpf (0-2) H 04/20/22 13:01 Urine WBC 0-4 /hpf (0-5) H 04/20/22 13:01 Ur Squamous Epith Cells 0-4 /hpf (0-5) H 04/20/22 13:01 Amorphous Sediment Not Reportable 04/20/22 13:01 Urine Bacteria Trace /hpf (NONE) 04/20/22 13:01 Urine Mucus Trace /hpf 04/20/22 13:01 Coronavirus 229E (PCR) Cancelled 04/20/22 Unknown SARS-CoV-2 (PCR) Cancelled 04/20/22 Unknown SARS-CoV-2 Ag (Rapid) Negative (Negative) 04/20/22 11:45 EKG Data EKG 1: I personally reviewed and interpreted this EKG as follows: EKG Interpretation Date: 04/20/22 EKG interpretation time: 11:40 Interpretation: No ST segment elevation or depression, no acute ischemic changes EKG 2: I personally reviewed and interpreted this EKG as follows: EKG Interpretation Date: 04/20/22 EKG interpretation time: 13:05 Interpretation: No ST segment elevation or depression, normal EKG Discharge Plan Discharge Patient Disposition: Home Clinical Impression: Congestive heart failure, Hypertension, condition or complication, cardiomyopathy Condition: Stable Prescriptions: New labetalol 100 mg tablet 100 mg PO BID Qty: 90 0RF Rx Instructions: take 1 tablet BID check your BP daily - increase by 1/2 tab BID up to max of 200 BID for BP > 150/100 Lasix 40 mg tablet 40 mg PO DAILY Qty: 30 0RF potassium chloride 10 mEq capsule, extended release 10 meq PO DAILY Qty: 30 0RF No Action Multi-DHA(with vit K) 27 mg iron-800 mcg-260 mg capsule 1 cap PO DAILY ferrous sulfate 325 mg (65 mg iron) tablet 325 mg PO BID 14 Days Qty: 30 0RF ibuprofen 800 mg tablet 800 mg PO TID PRN (Reason: Pain) Discharge Orders: Discharge ED (Routine); Ordered 04/20/22 Ordered By: Aurora Sharp Referrals: Adalberto Bauer MD [Primary Care Provider] - Discharge Diet: Low Salt Discharge Activity: Increase activity as tolerated Activity Restrictions/Additional Instructions: Limit your salt intake. Keep your legs elevated Take the labetalol 100 mg twice daily. Get a blood pressure cuff and monitor your blood pressure. Check it daily in the morning. If your blood pressure is greater than 150/100, increase your labetalol dose by 1/2 tablet twice daily. Maximum dose 200 mg twice daily. Take the Lasix and the potassium daily in the morning. Follow-up Friday with Dr. Bauer Return to the ER if you have increased shortness of breath or if you develop chest pain or any worsening symptoms. Coding Level of Care Code ED Guest Services for Mohamud Gomez
--- NOTE | 2022-04-20 11:37 | PC.NURSE ---
PT PLACED ON CONTINUOUS SPO2, NIBP, AND CM.
[2022-04-20 11:47] LABS: Basophils % 0.2 %; Eosinophils # 0.2 10^3/uL (0.0-0.8); Eosinophils % 1.5 %; Hematocrit 33.1 % (37.0-47.0); Hemoglobin 10.8 g/dL (11.5-15.3); Lymphocytes # 2.4 10^3/uL (0.8-4.8); Lymphocytes % 19.3 %; Mean Corpuscular HGB Conc 32.6 g/dL (30.0-36.0); Mean Corpuscular Volume 95.1 fl (81-99); Mean Platelet Volume 10.3 fL (7.4-10.4); Monocytes # 0.7 10^3/uL (0.2-0.9); Monocytes % 5.7 %; Neutrophils # 8.82 10^3/uL (1.8-7.7); Nucleated Red Blood Cells % 0 %; Platelet Count 275 10^3/cmm (130-400); Red Blood Count 3.48 10^6/uL (4.1-5.3); Red Cell Distribution Width 14.3 % (12.1-15.1); White Blood Count 12.3 10^3/uL (4.0-10.0)
[2022-04-20 12:06] LABS: Troponin(5th) Baseline 17 ng/L (0-10)
[2022-04-20] MEDS: iohexol 350 mg/mL 500 mL Btl (per mL) IV (12:07)
[2022-04-20 12:14] LABS: Alanine Aminotransferase 66 U/L (0-33); Albumin Level 3.1 g/dL (3.5-5.2); Alkaline Phosphatase 127 U/L (35-105); Anion Gap 15.1 (5-19); Aspartate Amino Transferase 41 U/L (0-32); Blood Urea Nitrogen 8 mg/dL (6-20); Calcium 8.7 mg/dL (8.5-10.5); Carbon Dioxide 23 mmol/L (22-29); Chloride 103 mmol/L (98-107); Globulin 2.4 g/dL (1.3-4.6); Glomerular Filtration Rate 146.9 mL/min (90-130); Glucose 75 mg/dL (65-115); Magnesium 1.8 mg/dL (1.7-2.3); NT Pro B Type Natriuretic Pept 635 pg/mL (0-125); Osmolality Calculated 281 mOsm/kg (285-295); Potassium 4.1 mmol/L (3.5-5.1); Sodium 137 mmol/L (136-145); Total Bilirubin 0.2 mg/dL (0.15-1.2); Total Protein 5.5 g/dL (6.6-8.7)
[2022-04-20] MEDS: FUROsemide 10 mg/mL SDV 4mL 40 MG IVP (12:22)
[2022-04-20 13:00] LABS: SARS Covid-2 Antigen Negative (Negative)
--- NOTE | 2022-04-20 13:03 | ECG_ITS ---
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 Measurements Intervals [place] Rate: 75 P: 62 NM: 123 QRS: 50 QRSD: 78 T: 39 QT: 357 QTc: 400 Interpretive Statements SINUS RHYTHM Compared to ECG 04/20/2022 11:39:32 No significant changes Electronically Signed On 04-20-2022 16:09:[address]IVER by Zia Cordova M.D. [id number]
[2022-04-20 13:57] LABS: Bilirubin Urine Neg (Negative); Blood Urine 3+ (Negative); Glucose Urine UA Norm (Normal); Ketones Urine Negative (Negative); Nitrate Urine Negative (Negative); Protein Urine Neg (Negative); Sulfosalicylic Acid Urine Negative (Negative); Urine Appearance Clear (CLEAR); Urine Color Yellow (Yellow); Urobilinogen Urine Norm (Negative); pH Urine 8 (5-7)
[2022-04-20 13:58] LABS: Add Urine Microscopic? YES; Leukocyte Esterase Urine Trace (Negative)
[2022-04-20 13:59] LABS: Squamous Epithelial Cell Urine 0-4 /hpf (0-5); WBC Urine 0-4 /hpf (0-5)
[2022-04-20 14:00] LABS: Add Urine Culture? Yes; Bacteria Urine TRACE /hpf; Mucus Urine TRACE /hpf
--- NOTE | 2022-04-20 14:06 | PC.NURSE ---
INFORMED DR. MORFIN OF BP OF 171/93 SHE VERBALIZED UNDERSTANDING NO FURTHER ORDERS.
[2022-04-20] MEDS: hyDRALAzine 20 mg/mL INJ 1 mL 10 MG IVP (14:15)
[2022-04-20] MEDS: labetalol 5 mg/mL SDV 20mL 20 MG IVP (15:27)
--- NOTE | 2022-04-20 16:09 | PC.NURSE ---
NOTIFIED DR. MORFIN OF VS OF 146/104 AND HR OF 101 BPM VO TO CONTINUE WITH DC.
--- NOTE | 2022-04-22 11:04 | DCPLANNER ---
Addendum entered by Pam Sadler 05/10/22 09:25: Patient had an outpatient echo scheduled - patient did attend appointment Addendum entered by Pam Sadler 05/01/22 10:57: Patient has an echo cardiogram scheduled for April at 4:00 - centralized scheduling will call patient with appointment information Original Note: scheduling manager had message to schedule an outpatient echo cardiogram for patient. scheduling manager faxed signed order to centralized scheduling, who will call patient with appointment information.
== END 2022-04-20 16:11 | disposition home or self-care (01) ==
PROVIDERS: Emergency Provider Emergency Medicine; PCP Family Medicine
DX: O90.3 Peripartum cardiomyopathy (principal); I50.9 Heart failure, unspecified; I10 Essential (primary) hypertension
CPT/HCPCS: 71045; 71275; 80053; 81001; 83735; 83880; 84484; 85025; 87086; 87426; 93005; 96374; 96375; 99285; J0360; J1940; J3490; Q9967

== ENCOUNTER 2022-05-09 15:36 | Outpatient (CLI) | payer BC, MEDICAID, SELFPAY ==
--- NOTE | 2022-05-09 | USCV_ITS ---
Meka Sigala Age: 27 Gender: F : 1995 Exam Date: 05/09/2022 16:12 Ordering Phys: Aurora Sharp MD Technologist: Jerry Juarez Exam Location: [facility] [place] Indication: cardiomyopathy BP: 112 / 74 HR: 86 Rhythm: Sinus Technical Quality: Adequate MEASUREMENTS (Male / Female) Normal Values 2D ECHO LV Diastolic Diameter PLAX 5.4 cm 4.2 - 5.9 / 3.9 - 5.3 cm LV Systolic Diameter PLAX 3.5 cm IVS Diastolic Thickness 1.1 cm 0.6 - 1.0 / 0.6 - 0.9 cm IVS Systolic Thickness 1.4 cm LVPW Diastolic Thickness 1.2 cm 0.6 - 1.0 / 0.6 - 0.9 cm LVPW Systolic Thickness 1.7 cm LVOT Diameter 2.0 cm LV Ejection Fraction 2D Teich 63.6 % LV Ejection Fraction MOD 2C 65.7 % LV Ejection Fraction 2C AL 66.4 % LA Diameter 3.4 cm LA Width 3.2 cm LA Height 4.4 cm RA Width 3.3 cm RA Height 4.6 cm Aorta at Sinotubular Diameter 2.1 cm IVC Diameter 1.7 cm M-MODE Aortic Annulus Diameter 2.6 cm LA Ao Ratio MM 1.5 MV E Point Septal Separation 0.9 cm DOPPLER AV Peak Velocity 143.3 cm/s LVOT Peak Velocity 129.0 cm/s AV Area Cont Eq vti 3.1 cm squared AV Area Cont Eq pk 2.8 cm squared MV Peak Velocity 109.0 cm/s MV Area PHT 5.8 cm squared Mitral E to A Ratio 1.6 MV E' Velocity 46.0 cm/s Mitral E to MV E' Ratio 6.5 Mitral E to LV E' Lateral Ratio 6.8 Mitral E to LV E' Septal Ratio 6.2 TR Peak Velocity 151.0 cm/s TR Peak Gradient 9.1 mmHg TR Mean Velocity 119.3 cm/s TR Mean Gradient 5.8 mmHg TR Velocity Time Integral 33.3 cm Right Atrial Pressure 3.0 mmHg Pulmonary Artery Systolic Pressu 12.1 mmHg PV Peak Velocity 98.3 cm/s RV Acceleration Time 0.1 s RV Ejection Time 0.3 s RV AcT/ET 0.4 FINDINGS Left Ventricle Normal left ventricular size and systolic function, EF 66 %. Right Ventricle Normal right ventricular size and systolic function. Right Atrium Normal right atrial size. Left Atrium Mildly increased left atrial size. Mitral Valve No gross abnormalities noted Aortic Valve No gross abnormalities noted Tricuspid Valve Trace tricuspid valve regurgitation. Pulmonic Valve No gross abnormalities noted Pericardium No pericardial effusion. Aorta Normal aortic annulus size. IVC Normal inferior vena cava. CONCLUSIONS Normal left ventricular size and systolic function, EF 66 %. Normal cardiac chamber sizes. No significant valvular lesions. No intracardiac masses. No pericardial effusion. No similar previous studies are available for comparison Dr Rambo Elmore MD FACC (Electronically Signed) Final Date: 10 May 2022 23:33 S
== END 2022-05-09 15:37 | disposition home or self-care (01) ==
LOC: RAD 15:48
PROVIDERS: PCP Family Medicine; Visit Provider Emergency Medicine
DX: O90.3 Peripartum cardiomyopathy (principal)
CPT/HCPCS: 93306

== ENCOUNTER → 2022-11-21 15:44 | Outpatient (BNVA) | payer BC, MEDICAID, SELFPAY | PROVIDERS: PCP Family Medicine; Visit Provider Family Medicine | DX: R07.9 Chest pain, unspecified (principal); E03.9 Hypothyroidism, unspecified; Z51.81 Encounter for therapeutic drug level monitoring; R03.0 Elevated blood-pressure reading, without diagnosis of hypertension | CPT/HCPCS: 83880; 84443; 85025; 85379 ==